=== PATIENT | male | born 1985 | race Two or more races ===

== ENCOUNTER 2019-11-27 14:18 | Emergency (ER) | payer OTHER ==
[~2019-11-27] VITALS: Ht 182.9 cm; Wt 84.4 kg
[2019-11-27] MEDS ORDERED: INTESTINEX680 M2 PO (15:40)
[2019-11-27] MEDS ORDERED: AMOX-CLAV 875-1 EACH PO (15:40)
== END 2019-11-27 16:10 ==
LOC: ER 14:18
DX: S10.81XA Abrasion of other specified part of neck, initial encounter (principal); W54.0XXA Bitten by dog, initial encounter; Y93.89 Activity, other specified; Y92.89 Other specified places as the place of occurrence of the external cause; Y99.8 Other external cause status